=== PATIENT | female | born 1970 | race Two or more races ===

== ENCOUNTER → 2025-02-04 | Outpatient (CLI) | payer MEDICAID, SELFPAY ==
--- NOTE | 2025-02-04 13:00 | XR_ITS ---
Examination: Breast ultrasound, unilateral, left complete Date and time of exam: February 04, 2025, 1314 hours INDICATIONS: Outside mammogram July 30, 2024 mass in the lower inner quadrant Technique: Real-time akers scale ultrasonographic imaging performed left breast left breast including all 4 quadrants as well as nipple retroareolar and axillary region. Findings: 11:00 nodule lobular margins 4 x 3 mm IMPRESSION: BI-RADS Category 3: Probably benign findings 1 additional 6-month left breast sonogram follow-up needed to document stability of 11:00 nodule described above
== END | disposition home or self-care (01) ==
LOC: CDIM 12:31
PROVIDERS: Referring Provider Physician Assistant Medical; Visit Provider Physician Assistant Medical
DX: N63.21 Unspecified lump in the left breast, upper outer quadrant (principal)
CPT/HCPCS: 76641